=== PATIENT | female | born 1975 | race American Indian/Alaskan Native ===

== ENCOUNTER 2018-01-08 00:01 | Emergency (ER) | payer MEDICAID ==
--- NOTE | 2018-01-08 01:32 | XRay Report ---
FINAL REPORT EXAM: XR FINGER(S) 2+V RT HISTORY: r/o foriegn object TECHNIQUE: Three views of the right 3rd finger were obtained. FINDINGS: There is mild fusiform soft tissue swelling around the distal phalanx of the right 3rd finger. There is no evidence of fracture or radiopaque foreign body. IMPRESSION: Mild soft swelling around the distal phalanx of the middle finger. No evidence of radiopaque foreign body or fracture.
--- NOTE | 2018-01-08 01:52 | Emergency Department Report ---
HPI - General Chief Complaint: Extremity Injury, Upper Time Seen by Provider: 01/08/18 01:40 - HPI HPI: This is a 42-year-old female with history of diabetes and hypertension noncompliant with meds she presents today complaining of right index finger pain tends only. Patient states she was using kebab stick when she thinks a piece of wood stuck in her finger. Patient states she tried to remove it but did not get it out. Patient states for the past week she has had minimal swelling to that area. Patient has essentially she is running out of her medications and has not taken it in a while. Patient states she does not have a primary care doctor referral. Patient denies fever/chills/nausea vomiting/ chest pain/shortness of breath or any other symptoms. ED Past Medical Hx - Past Medical History Previous Medical History?: Yes Hx Hypertension: Yes Hx Diabetes: Yes Additional medical history: herpes - Surgical History Past Surgical History?: Yes Hx Appendectomy: Yes Additional Surgical History: c sect X 4, left eye SX - Social History Smoking Status: Current Every Day Smoker Substance Use Type: Alcohol - Medications Home Medications: Home Medications Medication Instructions Recorded Confirmed Last Taken Type Acyclovir 800 mg PO BID #30 tablet 01/08/18 Unknown Rx Cephalexin [Keflex] 500 mg PO BID #10 capsule 01/08/18 Unknown Rx Ibuprofen [Motrin] 800 mg PO Q8HR PRN #30 tablet 01/08/18 Unknown Rx Lisinopril [Zestril TAB] 10 mg PO QDAY #40 tablet 01/08/18 Unknown Rx metFORMIN [Glucophage] 500 mg PO BID #60 tablet 01/08/18 Unknown Rx ED Review of Systems ROS: Stated complaint: PAIN RT INDEX FINGER Other details as noted in HPI Constitutional: denies: chills, fever Eyes: denies: eye pain, eye discharge, vision change ENT: denies: ear pain, throat pain Respiratory: denies: cough, shortness of breath, wheezing Cardiovascular: denies: chest pain, palpitations Endocrine: no symptoms reported Gastrointestinal: denies: abdominal pain, nausea, diarrhea Genitourinary: denies: urgency, dysuria, discharge Musculoskeletal: denies: back pain, joint swelling, arthralgia Skin: denies: rash, lesions Neurological: denies: headache, weakness, paresthesias Psychiatric: denies: anxiety, depression Hematological/Lymphatic: denies: easy bleeding, easy bruising Physical Exam - Physical Exam Vital Signs: Vital Signs 01/08/18 00:35 Temperature 98.9 F Pulse Rate 94 H Respiratory 18 Rate Blood Pressure 139/93 O2 Sat by Pulse 97 Oximetry Physical Exam: GENERAL: Alert and oriented x3, no apparent distress, Normal Gait, atraumatic. HEAD: Head is normocephalic and a-traumatic. EYES: Extra ocular muscles are intact. Pupils are equal, round, and reactive to light and accommodation. LUNGS: Symetrical with respiration, No wheezing, no rales or crackles, CTAB. HEART: S1, S2 present, regular rate and rhythm without murmur, no rubs, no gallops. Non tender to palpation ABDOMEN: No organomegaly was noted,Positive bowel sounds, soft, and non- distended. . Nontender to palpation on all Quadrants, NO CVA tenderness. EXTREMITIES/MUSCULOSKELETAL: No cyanosis, clubbing, rash, lesions or edema. Full ROM bilaterally. UE/LE Pulses 2+ bilaterally. Third digit of right hand at the fingertip has mild swelling, nonerythematous NEUROLOGIC: The patient is cooperative with no focal neurologic deficits. SKIN: Warm and dry, No lesions, No ulceration or induration present. ED Course Vital Signs 01/08/18 00:35 Temperature 98.9 F Pulse Rate 94 H Respiratory 18 Rate Blood Pressure 139/93 O2 Sat by Pulse 97 Oximetry ED Medical Decision Making - Lab Data Result diagrams: 01/08/18 01:48 01/08/18 01:48 - Radiology Data Radiology results: report reviewed, image reviewed FINAL REPORT EXAM: XR FINGER(S) 2+V RT HISTORY: r/o foriegn object TECHNIQUE: Three views of the right 3rd finger were obtained. FINDINGS: There is mild fusiform soft tissue swelling around the distal phalanx of the right 3rd finger. There is no evidence of fracture or radiopaque foreign body. IMPRESSION: Mild soft swelling around the distal phalanx of the middle finger. No evidence of radiopaque foreign body or fracture. Transcribed By: RB Dictated By: DEEPTHI BATISTA MD Electronically Authenticated By: DEEPTHI BATISTA MD Signed Date/Time: 01/08/18 0126 - Medical Decision Making 42-year-old female presents with finger splinter and elevated glucose. While in she has patient's fingerstick was ellevated, so CBC and BMP and urinalysis were ordered. CBC shows low sodium, chloride, potassium. An elevated glucose. Patient received 1 L of fluids, 20meq of potassium and Toradol for pain I discussed the patient that I will refill her metformin and lisinopril as to keep her comorbidities under control. Finger x-ray shows no foreign body, see reported above Vital signs are normal eyes, patient is in no acute distress. Discussed patient to follow-up with primary care physician as referred. Critical care attestation.: If time is entered above; I have spent that time in minutes in the direct care of this critically ill patient, excluding procedure time. ED Disposition Clinical Impression: Uncontrolled diabetes mellitus, Splinter in skin Disposition: -01 TO HOME OR SELFCARE Is pt being admited?: No Does the pt Need Aspirin: No Condition: Stable Instructions: Diabetes Mellitus Type 2 in Adults (ED), Acute Wound Care (ED) Additional Instructions: Make sure to follow up with the primary care physician as discussed. Take all your medications as you've been prescribed. If you have any worsening symptoms or develop new symptoms please return to ED immediately. Prescriptions: Acyclovir 800 mg PO BID #30 tablet Cephalexin [Keflex] 500 mg PO BID #10 capsule Ibuprofen [Motrin] 800 mg PO Q8HR PRN #30 tablet PRN Reason: Pain Lisinopril [Zestril TAB] 10 mg PO QDAY #40 tablet metFORMIN [Glucophage] 500 mg PO BID #60 tablet Referrals: PRIMARY MD ELMA [Primary Care Provider] - 3-5 Days DENISE POTTS MD [Referring] - 3-5 Days [facility] [Outside] - 3-5 Days [facility] [Outside] - 3-5 Days [facility] [Outside] - 3-5 Days [facility] [Outside] - 3-5 Days [facility] [Outside] - 3-5 Days [facility] [Provider Group] - 3-5 Days Forms: Work/School Release Form(ED) Time of Disposition: 03:52
[2018-01-08 02:08] LABS: Bilirubin,Urine NEG (Negative); Blood,Urine NEG (Negative); Color,Urine Yellow (Yellow); Protein,Urine <15 mg/dL mg/dL (Negative)
[2018-01-08 02:22] LABS: BUN/Creatinine Ratio 20; Blood Urea Nitrogen 10 mg/dL (7-17); Calcium 8.6 mg/dL (8.4-10.2); Hemolysis Index 4
[2018-01-08 02:25] LABS: Hematocrit 29.7 % (30.3-42.9); Hemoglobin 9.3 gm/dl (10.1-14.3); Mean Corpuscular HGB Conc 31 % (30-34); Platelet Count 204 K/mm3 (140-440); Red Blood Count 4.91 M/mm3 (3.65-5.03); Red Cell Distribution Width 19.6 % (13.2-15.2)
[2018-01-08] MEDS ORDERED: NACL 0.9% 1000 ML 1,000 ML IV ONE (02:26)
[2018-01-08] MEDS ORDERED: K-DUR PO ONE (02:26)
[2018-01-08 02:31] LABS: Mean Corpuscular Hemoglobin 19 pg (28-32); Mean Corpuscular Volume 60 fl (79-97)
[2018-01-08] MEDS ORDERED: TORADOL ONE (02:44)
[2018-01-08] MEDS ORDERED: TORADOL IV ONE (02:59)
[2018-01-08 05:06] VITALS: BP 140/91
== END 2018-01-08 04:15 | disposition home or self-care (01) ==
LOC: ED 00:01
DX: S60.452A Superficial foreign body of right middle finger, initial encounter (principal); E11.65 Type 2 diabetes mellitus with hyperglycemia; I10 Essential (primary) hypertension; F17.200 Nicotine dependence, unspecified, uncomplicated; Z90.49 Acquired absence of other specified parts of digestive tract; W45.8XXA Other foreign body or object entering through skin, initial encounter; Y93.89 Activity, other specified; Y99.8 Other external cause status; Y92.89 Other specified places as the place of occurrence of the external cause
CPT/HCPCS: 10120; 36415; 73140; 80048; 81001; 82962; 85027; 96374; 99284; J1885; J7030

== ENCOUNTER 2018-05-19 14:39 | Emergency (ER) | payer MEDICAID ==
[2018-05-19] MEDS ORDERED: TYLENOL PO ONE (15:30)
[2018-05-19] MEDS ORDERED: TYLENOL ONE (15:31)
[2018-05-19] MEDS ORDERED: MOTRIN PO ONE (21:24)
--- NOTE | 2018-05-19 21:32 | Emergency Department Report ---
ED ENT HPI - General Chief complaint: Dental/Oral Stated complaint: MOUTH PAIN Time Seen by Provider: 05/19/18 21:00 Source: patient Mode of arrival: Ambulatory Limitations: No Limitations - History of Present Illness Initial comments: This is a 42-year-old female nontoxic, well nourished in appearance, no acute signs of distress presents to the ED with c/o of multiple toothache. Patient denies following up with a dentist. Patient describes toothache as aching level of 8 out of 10. Patient stated that she "had bilateral face swelling" but has resolved now. Patient denies any numbness, tingling, fever, chills, headache, stiff neck, abdominal pain, chest pain, shortness of breath. Patient denies any drug allergies. PMH includes HTN and DM. MD complaint: tooth pain -: year(s) Location: tooth # (multiple) Severity: mild Severity scale (0 -10): 8 Quality: aching Consistency: constant Improves with: none Worsens with: none Context- Dental: history of dental caries, poor dental care Associated Symptoms: gum swelling, toothache. denies: fever, cough, pain with swallowing, sore throat, tinnitus, hearing loss, discharge from ear, rhinorrhea - Related Data Previous Rx's Medication Instructions Recorded Last Taken Type Acyclovir 800 mg PO BID #30 tablet 01/08/18 Unknown Rx Cephalexin [Keflex] 500 mg PO BID #10 capsule 01/08/18 Unknown Rx Ibuprofen [Motrin] 800 mg PO Q8HR PRN #30 tablet 01/08/18 Unknown Rx Lisinopril [Zestril TAB] 10 mg PO QDAY #40 tablet 01/08/18 Unknown Rx metFORMIN [Glucophage] 500 mg PO BID #60 tablet 01/08/18 Unknown Rx Acetaminophen/Codeine [Tylenol 1 tab PO Q6H PRN #12 tab 05/19/18 Unknown Rx /Codeine # 3 tab] Amoxicillin/K Clav Tab [Augmentin 1 tab PO Q12HR #20 tab 05/19/18 Unknown Rx 875 mg] Chlorhexidine Mouthwash [Peridex] 15 ml MM BID #1 bottle 05/19/18 Unknown Rx Ibuprofen [Motrin] 600 mg PO Q8H PRN #30 tablet 05/19/18 Unknown Rx Allergies Allergy/AdvReac Type Severity Reaction Status Date / Time No Known Allergies Allergy Verified 01/08/18 02:55 ED Dental HPI - General Chief complaint: Dental/Oral Stated complaint: MOUTH PAIN Time Seen by Provider: 05/19/18 21:00 Source: patient Mode of arrival: Ambulatory Limitations: No Limitations - Related Data Previous Rx's Medication Instructions Recorded Last Taken Type Acyclovir 800 mg PO BID #30 tablet 01/08/18 Unknown Rx Cephalexin [Keflex] 500 mg PO BID #10 capsule 01/08/18 Unknown Rx Ibuprofen [Motrin] 800 mg PO Q8HR PRN #30 tablet 01/08/18 Unknown Rx Lisinopril [Zestril TAB] 10 mg PO QDAY #40 tablet 01/08/18 Unknown Rx metFORMIN [Glucophage] 500 mg PO BID #60 tablet 01/08/18 Unknown Rx Acetaminophen/Codeine [Tylenol 1 tab PO Q6H PRN #12 tab 05/19/18 Unknown Rx /Codeine # 3 tab] Amoxicillin/K Clav Tab [Augmentin 1 tab PO Q12HR #20 tab 05/19/18 Unknown Rx 875 mg] Chlorhexidine Mouthwash [Peridex] 15 ml MM BID #1 bottle 05/19/18 Unknown Rx Ibuprofen [Motrin] 600 mg PO Q8H PRN #30 tablet 05/19/18 Unknown Rx Allergies Allergy/AdvReac Type Severity Reaction Status Date / Time No Known Allergies Allergy Verified 01/08/18 02:55 ED Review of Systems ROS: Stated complaint: MOUTH PAIN Other details as noted in HPI Constitutional: denies: chills, fever Eyes: denies: eye pain, eye discharge, vision change ENT: dental pain. denies: ear pain, throat pain Respiratory: denies: cough, shortness of breath, wheezing Cardiovascular: denies: chest pain, palpitations Endocrine: no symptoms reported Gastrointestinal: denies: abdominal pain, nausea, diarrhea Genitourinary: denies: urgency, dysuria, discharge Musculoskeletal: denies: back pain, joint swelling, arthralgia Skin: denies: rash, lesions Neurological: denies: headache, weakness, paresthesias Psychiatric: denies: anxiety, depression Hematological/Lymphatic: denies: easy bleeding, easy bruising ED Past Medical Hx - Past Medical History Hx Hypertension: Yes Hx Diabetes: Yes Additional medical history: herpes - Surgical History Hx Appendectomy: Yes Additional Surgical History: c sect X 4, left eye SX - Social History Smoking Status: Current Every Day Smoker Substance Use Type: None - Medications Home Medications: Home Medications Medication Instructions Recorded Confirmed Last Taken Type Acyclovir 800 mg PO BID #30 tablet 01/08/18 Unknown Rx Cephalexin [Keflex] 500 mg PO BID #10 capsule 01/08/18 Unknown Rx Ibuprofen [Motrin] 800 mg PO Q8HR PRN #30 tablet 01/08/18 Unknown Rx Lisinopril [Zestril TAB] 10 mg PO QDAY #40 tablet 01/08/18 Unknown Rx metFORMIN [Glucophage] 500 mg PO BID #60 tablet 01/08/18 Unknown Rx Acetaminophen/Codeine [Tylenol 1 tab PO Q6H PRN #12 tab 05/19/18 Unknown Rx /Codeine # 3 tab] Amoxicillin/K Clav Tab [Augmentin 1 tab PO Q12HR #20 tab 05/19/18 Unknown Rx 875 mg] Chlorhexidine Mouthwash [Peridex] 15 ml MM BID #1 bottle 05/19/18 Unknown Rx Ibuprofen [Motrin] 600 mg PO Q8H PRN #30 tablet 05/19/18 Unknown Rx ED Physical Exam - General Limitations: No Limitations General appearance: alert, in no apparent distress - Head Head exam: Present: atraumatic, normocephalic - Eye Eye exam: Present: normal appearance - ENT ENT exam: Present: mucous membranes moist - Expanded ENT Exam Expanded Ear exam: Present: normal external inspection Mouth exam: Present: normal external inspection, tongue normal. Absent: drooling, trismus, muffled voice, tongue elevation, laceration Teeth exam: Present: dental caries, fractured tooth #, dental tenderness #, gingival enlargement, other (no facial swelling or abscess noted.) Throat exam: Positive: normal inspection, other (Uvula midline.). Negative: tonsillar erythema, tonsillomegaly, tonsillar exudate, R peritonsillar mass, L peritonsillar mass - Neck Neck exam: Present: normal inspection, full ROM. Absent: tenderness, meningismus, lymphadenopathy - Respiratory Respiratory exam: Present: normal lung sounds bilaterally. Absent: respiratory distress - Cardiovascular Cardiovascular Exam: Present: regular rate, normal rhythm. Absent: systolic murmur, diastolic murmur, rubs, gallop - GI/Abdominal GI/Abdominal exam: Present: soft, normal bowel sounds - Extremities Exam Extremities exam: Present: normal inspection - Back Exam Back exam: Present: normal inspection - Neurological Exam Neurological exam: Present: alert, oriented X3 - Psychiatric Psychiatric exam: Present: normal affect, normal mood - Skin Skin exam: Present: warm, dry, intact, normal color. Absent: rash ED Course Vital Signs 05/19/18 15:20 Temperature 99.2 F Pulse Rate 76 Respiratory 18 Rate Blood Pressure 145/94 O2 Sat by Pulse 100 Oximetry - Reevaluation(s) Reevaluation #1: 05/19/18 21:46 Patient is speaking in full sentences with no signs of distress noted. Critical care attestation.: If time is entered above; I have spent that time in minutes in the direct care of this critically ill patient, excluding procedure time. ED Disposition Clinical Impression: Dental caries, Gingivitis Disposition: - TO HOME OR SELFCARE Is pt being admited?: No Does the pt Need Aspirin: No Condition: Stable Instructions: Dental Caries (ED), Gingivitis (ED), Acetaminophen/Codeine (By mouth), Ibuprofen (By mouth) Additional Instructions: Follow-up with a dentist doctor in 3-5 days or if symptoms worsen and continue return to emergency room as soon as possible. Do not operate any machinery while taking Tylenol with codeine as this may cause drowsiness. Prescriptions: Acetaminophen/Codeine [Tylenol /Codeine # 3 tab] 1 tab PO Q6H PRN #12 tab PRN Reason: Pain , Severe (7-10) Amoxicillin/K Clav Tab [Augmentin 875 mg] 1 tab PO Q12HR #20 tab Chlorhexidine Mouthwash [Peridex] 15 ml MM BID #1 bottle Ibuprofen [Motrin] 600 mg PO Q8H PRN #30 tablet PRN Reason: Pain Referrals: PRIMARY CARE, [Primary Care Provider] - 3-5 Days GERALDINE SMITH MD [Staff Physician] - 3-5 Days [facility] [Outside] - 3-5 Days [facility] [Outside] - 3-5 Days Forms: Work/School Release Form(ED)
[2018-05-19 22:10] VITALS: BP 136/88
== END 2018-05-19 22:10 | disposition home or self-care (01) ==
LOC: ED 14:39
DX: K02.9 Dental caries, unspecified (principal); K05.10 Chronic gingivitis, plaque induced; I10 Essential (primary) hypertension; E11.9 Type 2 diabetes mellitus without complications; F17.200 Nicotine dependence, unspecified, uncomplicated